=== PATIENT | female | born 1970 | race Caucasian/White ===

== ENCOUNTER 2018-06-20 00:07 | Emergency (ER) | payer OTHER ==
[~2018-06-20] VITALS: Ht 154.9 cm; Wt 70.3 kg
[~2018-06-20 00:07] MED LIST: ACIDOPHILUS1 EACH; AMOXICILLIN875 MG PO; BACTRIM 400-801 EACH PO; BACTRIM DS TAB1 EACH; BACTRIM DS TAB1 EACH PO; CIPRO500 M1 PO; CIPRO500 MG PO; CIPROFLOXACIN500 M1 PO; FLAGYL500 MG PO; FLEXERIL PO; IRON18 MG PO; IRON325; KEFLEX500 MG PO; KLOR-CON 1010 MEQ PO; MACROBID 100 M100 M1 PO; NAPROSYN500 MG PO; NOHOMEMEDICATIONS; NORCO 10-325 T1 EACH; NORCO 5-325 TA1 EAC1 PO; NORCO 5-325 TA1 EACH PO; ONDANSETRON HCL4 M2 PO; PEPCID40 MG PO; PYRIDIUM100 M1 PO; ULTRAM 50MG TAB50 MG PO; VICODIN 5-5001 EACH PO; [UNRECOGNIZED DRUG - OTHER]
[2018-06-20 00:43] LABS: ABSOLUTE BASOPHILS 0.1 thou/uL (0.0-0.2); ABSOLUTE EOSINOPHILS 0.1 thou/uL (0.0-0.7); ABSOLUTE LYMPHOCYTES 2.4 thou/uL (0.8-5.3); ABSOLUTE MONOCYTES 0.9 thou/uL (0.0-1.2); BASOPHILS 1.2 %; EOSINOPHILS 1.9 %; HEMATOCRIT 41.5 % (37.0-47.0); LYMPHOCYTES 31.9 %; MCH 34.4 pg (26.0-34.0); MCHC 33.9 g/dL (28.0-37.0); MCV 101.7 fL (80.0-100.0); MONOCYTES 12.1 %; MPV 6.6 fl. (7.2-11.1); NUCLEATED RBCS 0 /100WBC; PLATELET COUNT* 383 thou/uL (150-400); POLYS 52.9 %; RBC 4.08 mil/uL (4.20-5.00); RDW-CV 16.3 % (10.5-14.5); WBC 7.6 thou/uL (4.0-11.0)
[2018-06-20 00:47] LABS: CALCIUM 8.4 mg/dL (8.5-10.1); CREATININE 0.6 mg/dL (0.6-1.3); POTASSIUM 3.4 mmol/L (3.5-5.1)
[2018-06-20] MEDS ORDERED: BACTRIM DS TAB1 EACH PO (03:16)
[2018-06-20] MEDS ORDERED: NORCO 5-325 TA1 EACH PO (03:16)
[2018-06-20] MEDS ORDERED: KEFLEX500 M1 PO (03:16)
[2018-06-20 04:10] VITALS: BP 132/78
== END 2018-06-20 03:50 | disposition home or self-care (01) ==
LOC: M.ERS 00:07
PROVIDERS: Emergency Medicine
DX: L03.116 Cellulitis of left lower limb (principal); M86.9 Osteomyelitis, unspecified; F17.210 Nicotine dependence, cigarettes, uncomplicated; Z88.2 Allergy status to sulfonamides; Z91.040 Latex allergy status